=== PATIENT | female | born 1970 | race Caucasian/White ===

== ENCOUNTER 2021-02-08 15:44 | Emergency (ER) | payer OTHER ==
[~2021-02-08] VITALS: Ht 160 cm; Wt 53.5 kg
--- NOTE | 2021-02-08 16:33 | NUR ---
PT IS IN [facility]. DR JOINER EVALUATED THE PT.
[2021-02-08 16:53] VITALS: BP 136/65
--- NOTE | 2021-02-08 16:54 | NUR ---
PT WAS D/C'd TO HOME. D/C INSTRUCTIONS GIVEN TO THE PT BY DR JOINER.
== END 2021-02-08 17:13 | disposition home or self-care (01) ==
LOC: ER 15:48
DX: S09.90XA Unspecified injury of head, initial encounter (principal); S80.12XA Contusion of left lower leg, initial encounter; S50.01XA Contusion of right elbow, initial encounter; W10.8XXA Fall (on) (from) other stairs and steps, initial encounter; Y92.038 Other place in apartment as the place of occurrence of the external cause
CPT/HCPCS: 70450; 73080; 73590; A4663